=== PATIENT | male | born 1995 | race Asian ===

== ENCOUNTER 2016-12-17 11:34 | Emergency (ER) | payer OTHER ==
[~2016-12-17] VITALS: Ht 167.6 cm; Wt 61.2 kg
[2016-12-17 11:37] VITALS: BP 134/75
--- NOTE | 2016-12-17 12:23 | ED HEADACHE COMPLAINT ---
History of Present Illness General Chief Complaint: Headache Stated Complaint: HEADACHE X 3WEEKS Source: patient Exam Limitations: no limitations Vital Signs & Intake/Output Vital Signs & Intake/Output Vital Signs Date Time Temp Pulse Resp B/P Pulse O2 O2 Flow FiO2 Ox Delivery Rate 12/17 1137 98.5 88 18 134/75 97 Room Air Room Air Allergies Coded Allergies: No Known Allergies (12/17/16) Reconcile Medications Butalb/Acetaminophen/Caffeine (Fioricet 50-300-40 MG Capsule) 50 MG-300 MG-40 MG CAPSULE 1 TAB PO Q4-6 PRN PAIN Triage Note: TRIAGE: 21 Y/O MALE PRESENTS WITH MOTHER C/O HEADACHES X3 WEEKS. REPORTS OVER THE PAST 2 DAYS, HEADACHE HAS WORSENED. "I'M SUPPOSED TO HAVE A CT SCAN IN TWO WEEKS, AND I TRIED TO GET IT BUMPED UP, BUT THEY CAN'T." REPORTS MULTIPLE AGGREVATING FACTORS. SAW PCP ON MONDAY. Triage Nurses Notes Reviewed? yes Onset: Gradual Duration: week(s): (3), worse persistent since (2 days) Timing: recent history Quality/Severity: moderate, throbbing Head Injury Location: RIGHT SIDED HPI: 21 year old male presents to the ER requesting Head CT. He has reported recent history of headaches, recently getting worse. He states that he wakes with headaches in the morning upon wakening. His doctor is trying to get approval for outpatient CT scan but states he cannot wait. Headache is right sided, radiates to the eye. No tearing or nasal congestion. Denies trauma. Past History Travel History Traveled to [place] past 21 day No Medical History Any Pertinent Medical History? none Surgical History Surgical History: none Psychosocial History What is your primary language Indonesian Tobacco Use: Never used ETOH Use: occasional use Illicit Drug Use: denies illicit drug use Family History Hx Contributory? No Review of Systems Review of Systems Constitutional: Denies: chills, fever. Eyes: Reports: no symptoms. Ears, Nose, Throat, Mouth: Reports: no symptoms. Respiratory: Denies: cough, short of breath. Cardiovascular: Denies: chest pain. Gastrointestinal/Abdominal: Denies: abdominal pain. Genitourinary: Reports: no symptoms. Musculoskeletal: Reports: no symptoms. Skin: Reports: no symptoms. Neurological/Psychological: Reports: headache. Denies: anxiety, ataxia, numbness, tremors. Hematologic/Endocrine: Denies: bruising, bleeding. Endocrine: Reports: no symptoms. Immunologic/Allergic: Reports: no symptoms. All Other Systems: Reviewed and Negative Physical Exam Physical Exam General Appearance: well developed/nourished, alert, awake, anxious, mild distress Head: atraumatic, normal appearance Eyes: Bilateral: normal appearance, PERRL, EOMI. Ears, Nose, Throat: normal pharynx Neck: normal inspection, supple, full range of motion Respiratory: normal breath sounds, chest non-tender, no respiratory distress Cardiovascular: regular rate/rhythm Gastrointestinal: normal bowel sounds, soft, non-tender Back: normal inspection, normal range of motion Extremities: normal inspection, normal capillary refill, normal range of motion, no edema Psychiatric: awake, alert, oriented x 3 Cranial Nerves: normal hearing, normal speech, PERRL Coordination/Gait: normal gait Motor/Sensory: no motor/sensory deficits Core Measures Severe Sepsis Present: No Septic Shock Present: No Progress Differential Diagnosis: cluster KRISHNAN, IC mass/tumor, migraine KRISHNAN, musculoskeletal pain, tension KRISHNAN Plan of Care: Orders Procedure Date/time Status CT HEAD WO IV CONTRAST 12/18 1235 Active Diagnostic Imaging: Viewed by Me: CT Scan. Discussed w/RAD: CT Scan. Radiology Impression: PATIENT: LONI GANN PRESENT AGE: 21 PATIENT ACCOUNT NO: [id number] : 93 LOCATION: [facility] ORDERING PHYSICIAN: JASMIN GORDON MD SERVICE DATE: 12/17/16-123 EXAM TYPE: CAT - CT HEAD WO IV CONTRAST EXAMINATION: CT HEAD WITHOUT CONTRAST CLINICAL INFORMATION: Right-sided headache for 3 weeks. COMPARISON: None TECHNIQUE: Contiguous axial imaging was performed from the skull base to vertex without intravenous administration of contrast. DLP: 600.71 mGy-cm FINDINGS: There is no evidence of acute intracranial hemorrhage or territorial infarction. No abnormal mass effect or midline shift is seen. Li to white matter differentiation is well preserved. No extra-axial fluid collections are identified. The ventricles are normal in size. The pituitary gland appear prominent, shows small nodular suprasellar extension, likely physiologic, especially given the patient's age. However, follow-up nonemergent MRI of the head with and without contrast, using pituitary mass protocol is recommended to exclude any small sella suprasellar mass. The osseous structures and soft tissues are normal. The mastoid air cells and visualized portions of the paranasal sinuses are well aerated. IMPRESSION: No acute intracranial pathology. Slight nodular suprasellar extension of the pituitary gland is identified, likely physiologic, especially given the patient' s age. However, follow-up nonemergent MRI of the head with and without contrast, using pituitary mass protocol is recommended to exclude any small sella suprasellar mass. DICTATED BY: DIAMOND GONZALEZ MD DATE/TIME DICTATED:12/17/161328 [employer] SUPERVISOR:BYRON DATE/TIME TRANSCRIBED:12/17/161328 CONFIDENTIAL, DO NOT COPY WITHOUT APPROPRIATE AUTHORIZATION. <Electronically signed in Other Vendor System> SIGNED BY: DIAMOND GONZALEZ MD 12/17/16 1344 Departure Departure Time of Disposition: 1351 Disposition: HOME OR SELF CARE Condition: Stable Clinical Impression Primary Impression: Headache Referrals: KOREY LANCASTER,ALAN Link (PCP/Family) Additional Instructions: FOLLOW UP WITH YOUR DOCTOR IN THE OFFICE FOR OUTPATIENT MRI OF THE BRAIN. TAKE THE COPY OF THE CT SCAN RESULTS. MOTRIN OR TYLENOL NEEDED FOR HEADACHE. Departure Forms: Customer Survey General Discharge Information Prescriptions: Current Visit Scripts Butalb/Acetaminophen/Caffeine (Fioricet 50-300-40 MG Capsule) 1 TAB PO Q4-6 PRN PAIN #20 TAB
--- NOTE | 2016-12-17 13:44 | CT SCAN REPORT ---
EXAMINATION: CT HEAD WITHOUT CONTRAST CLINICAL INFORMATION: Right-sided headache for 3 weeks. COMPARISON: None TECHNIQUE: Contiguous axial imaging was performed from the skull base to vertex without intravenous administration of contrast. DLP: 600.71 mGy-cm FINDINGS: There is no evidence of acute intracranial hemorrhage or territorial infarction. No abnormal mass effect or midline shift is seen. Li to white matter differentiation is well preserved. No extra-axial fluid collections are identified. The ventricles are normal in size. The pituitary gland appear prominent, shows small nodular suprasellar extension, likely physiologic, especially given the patient's age. However, follow-up nonemergent MRI of the head with and without contrast, using pituitary mass protocol is recommended to exclude any small sella suprasellar mass. The osseous structures and soft tissues are normal. The mastoid air cells and visualized portions of the paranasal sinuses are well aerated. IMPRESSION: No acute intracranial pathology. Slight nodular suprasellar extension of the pituitary gland is identified, likely physiologic, especially given the patient's age. However, follow-up nonemergent MRI of the head with and without contrast, using pituitary mass protocol is recommended to exclude any small sella suprasellar mass.
[2016-12-17] MEDS ORDERED: FIORICET 50-301 EACH PO (13:56)
== END 2016-12-17 14:08 ==
LOC: ERH 11:34
DX: R51 Headache (principal)

== ENCOUNTER 2016-12-28 18:30 | Emergency (ER) | payer OTHER ==
[~2016-12-28] VITALS: Ht 167.6 cm; Wt 62.1 kg
[~2016-12-28 18:30] MED LIST: FIORICET 50-301 EACH PO
[2016-12-28 19:53] LABS: ABSOLUTE BASOPHIL COUNT 0 /CUMM (0.0-0.2); ABSOLUTE EOSINOPHIL COUNT 0.2 /CUMM (0.0-0.7); ABSOLUTE GRANULOCYTE CT 4.2 /CUMM (1.4-6.5); ABSOLUTE LYMPH COUNT 2.7 /CUMM (1.2-3.4); ABSOLUTE MONOCYTE COUNT 0.3 /CUMM (0.10-0.60); BASOPHIL % 0.4 % (0.0-2.0); EOSINOPHIL % 2.6 % (0-5); GRANULOCYTE % 56.1 % (42.2-75.2); HEMATOCRIT 46.6 % (42-52); MEAN CORPUSCULAR HGB 28.4 PG (27.0-31.0); MEAN CORPUSCULAR HGB CONC 32.9 G/DL (33.0-37.0); MEAN CORPUSCULAR VOLUME 86.2 FL (80.0-94.0); MEAN PLATELET VOLUME 7.7 FL (7.4-10.4); PLATELET COUNT 269 /CUMM (130-400); RBC DISTRIBUTION WIDTH 12.9 % (11.5-14.5); RED BLOOD CELL CT 5.41 /CUMM (4.70-6.10); WHITE BLOOD CELL COUNT 7.5 /CUMM (4.8-10.8)
--- NOTE | 2016-12-28 21:04 | ED GENERAL ADULT ---
History of Present Illness General Chief Complaint: General Adult Stated Complaint: SENT BY DR. GRIMALDO FOR BLOOD WORK Source: patient, PCP Exam Limitations: no limitations Allergies Coded Allergies: No Known Allergies (12/17/16) Reconcile Medications Butalb/Acetaminophen/Caffeine (Fioricet 50-300-40 MG Capsule) 50 MG-300 MG-40 MG CAPSULE 1 TAB PO Q4-6 PRN PAIN Triage Note: PT TO TRIAGE BY REFERRAL FOR BLOOD WORK. HX OF MIGRAINES, PT WAS SEEN HERE IN ER 2 WEEKS AGO FOR MIGRAINE, CAT SCAN WAS DONE -WNL. PT GOT MRI -?ADNORMAL PITUITARY GLAND. PT DENIES HEADACHE AT THIS TIME. VSS. Triage Nurses Notes Reviewed? yes Onset: Gradual Duration: day(s): (10) Timing: no prior history Injury Environment: home Severity: mild Severity Numbers: 1 Modifying Factors: Improves With: other (MEDS). HPI: Patient is a 21-year-old male, no known medical history presenting to the emergency department with chief complaint of a history of headaches over the past week or 2. Patient was seen in this emergency department and evaluated initially for headaches. He had a CAT scan done which showed an abnormality. He then had an outpatient MRI done that showed questionable bleeding into the pituitary gland. At the time of the MRI patient had reported improving headaches. He then saw an paper tube cutter who wanted him to come to the emergency department for blood work before being evaluated tomorrow in the office. Patient reports he has been headache free for the past couple days. Has not needed the medication that he was funds prescribed here. Denies nausea or vomiting. No visual changes. (CARA GRANADO) Vital Signs & Intake/Output Vital Signs & Intake/Output Vital Signs Date Time Temp Pulse Resp B/P B/P Pulse O2 O2 Flow FiO2 Mean Ox Delivery Rate 12/28 2122 96.8 72 18 109/86 97 Room Air 12/28 184 98.5 62 18 129/77 100 Room Air Past History Travel History Traveled to [place] past 21 day No Medical History Any Pertinent Medical History? see below for history Neurological: migraine Surgical History Surgical History: none Psychosocial History What is your primary language Sinhala Tobacco Use: Never used Family History Hx Contributory? No (CARA GRANADO) Review of Systems Review of Systems Constitutional: Reports: no symptoms. Comments Review of systems: See HPI, All other systems negative. Constitutional, no chills fever or weight loss HEENT: No visual changes no sore throat no congestion Cardiovascular: No chest pain ,palpitation , orthopnea or ankle swelling Skin, no jaundice no rashes Respiratory: No dyspnea cough sputum or hemoptysis GI: No nausea no vomiting : No dysuria Muscle skeletal: no back pain, no neck pain, Neurologic: No numbness no confusion Psych: No stress anxiety or depression,. Heme/endocrine: No bruising no bleeding no polyuria or polydipsia Immunology: No splenectomy or history of AIDS (CARA GRANADO) Physical Exam Physical Exam General Appearance: well developed/nourished, no apparent distress, alert, awake , comfortable Comments: Well-developed well-nourished person in no acute distress HEENT: extraocular motion intact, no nystagmus. Pupils equally round and reactive to light and accommodation. Nose is atraumatic. External auditory canal and Tympanic membranes clear. Pharynx normal. No swelling or edema. Neck: Supple, no lymphadenopathy, normal range of motion without pain or tenderness Cardiovascular: Regular rate and rhythms no murmurs rubs or gallops, normal JVP Respiratory: Chest nontender. No respiratory distress.breath sounds clear to auscultation bilaterally Extremity: No edema, radial pulses are 2+ bilaterally. Neuro: Alert oriented x3, motor sensory normal, cranial nerves II through XII grossly intact. Cerebellar testing is unremarkable. Skin: No appreciable rash on exposed skin, skin is warm and dry. Psych: Mood and affect is normal, memory and judgment is normal. Core Measures ACS in differential dx? No CVA/TIA Diagnosis: No Severe Sepsis Present: No Septic Shock Present: No (CARA GRANADO) Progress Differential Diagnoses I considered the following diagnoses in my evaluation of the patient: Pituitary hypopyrexia migraine headaches, cluster headaches, dehydration, Initial ED EKG: none Comments: Patient will go for repeat cortisol level and the morning per endocrinology. Vitals are stable. Neurologically intact. Cleared for discharge. (CARA GRANADO) Plan of Care: Orders Procedure Date/time Status THYROID STIMULATING HORMONE 12/28 1848 Complete FREE T4 12/28 1848 Complete CORTISOL PM 12/28 1848 Complete COMPREHENSIVE METABOLIC PANEL 12/28 1848 Complete CBC WITHOUT DIFFERENTIAL 04/19 1849 Complete Laboratory Tests 12/28/16 1937: Anion Gap 14, Estimated GFR > 60, BUN/Creatinine Ratio 31.1 H, Glucose 93, Calcium 10.1, Total Bilirubin 0.5, AST 38, ALT 46, Alkaline Phosphatase 53, Total Protein 8.7 H, Albumin 5.2 H, Globulin 3.5, Albumin/Globulin Ratio 1.5, TSH 2.870, Free T4 0.96, Cortisol PM Sample 2.8, CBC w Diff NO MAN DIFF REQ, RBC 5.41, MCV 86.2, MCH 28.4, RDW 12.9, MPV 7.7, Gran % 56.1, Lymphocytes % 36.4, Monocytes % 4.5, Eosinophils % 2.6, Basophils % 0.4, Absolute Granulocytes 4.2, Absolute Lymphocytes 2.7, Absolute Monocytes 0.3, Absolute Eosinophils 0.2, Absolute Basophils 0, PUBS MCHC 32.9 L Departure Departure Time of Disposition: 2107 Disposition: HOME OR SELF CARE Condition: Stable Clinical Impression Primary Impression: Headache Qualifiers: Headache type: unspecified Headache chronicity pattern: unspecified pattern Intractability: not intractable Qualified Code: R51 - Headache Referrals: REENA LANCASTER,ZEINA NAIR MD,ALAN Link (PCP/Family) Additional Instructions: Follow-up with Dr. Degroot, he will call you tomorrow morning. Make sure he go tomorrow morning to get your outpatient blood work done. Return for any worsening symptoms or concerns. Departure Forms: Customer Survey General Discharge Information (CARA GRANADO) PA/TEACHER SPECIALIST Co-Sign Statement Statement: ED Attending supervision documentation- [] I saw and evaluated the patient. I have also reviewed all the pertinent lab results and diagnostic results. I agree with the findings and the plan of care as documented in the PA's/TEACHER SPECIALIST's documentation. [X] I have reviewed the ED Record and agree with the PA's/TEACHER SPECIALIST's documentation. [] Additions or exceptions (if any) to the PAs/TEACHER SPECIALIST's note and plan are summarized below: [] (EVAN LANCASTER,JASMIN) Critical Care Note Critical Care Note Critical Care Time: non-applicable (CARA GRANADO)
[2016-12-28 21:23] VITALS: BP 109/86
== END 2016-12-28 21:25 ==
LOC: ERH 18:30
PROVIDERS: Emergency Medicine
DX: R51 Headache (principal)